=== PATIENT | female | born 1950 | race African-American/Black ===

== ENCOUNTER 2019-12-03 17:29 | Observation (INO) | payer MEDICARE, MEDICAID, SELFPAY ==
[2019-12-03] VITALS (9 sets, daily range): BP systolic 81–121; BP diastolic 52–73; PULSE 64–117; RESP 17–22; TEMP 36.6; O2SAT 96–100; BMI 23.8
--- NOTE | ~2019-12-03 | XR_ITS ---
EXAMINATION: XR chest 2V DATE: 12/03/2019 18:22 INDICATION: Shortness of breath TECHNIQUE: PA and lateral views of the chest are obtained. COMPARISON: None available FINDINGS: There are minimal airspace opacities of the right lower lobe. There is no pleural effusion or pneumothorax. The heart size is normal. Calcified mediastinal lymph nodes are consistent with old granulomatous disease. There is mild thoracic spondylosis. IMPRESSION: 1. Minimal airspace opacity of the right lower lobe, consistent with atelectasis versus pneumonia. Reviewed, dictated and finalized at location A. IMPRESSION: 1. Minimal airspace opacity of the right lower lobe, consistent with atelectasi s versus pneumonia.
--- NOTE | 2019-12-03 17:46 | ECG_ITS ---
Measurements Intervals [place] Rate: 68 P: 49 SC: 143 QRS: 24 QRSD: 90 T: 55 QT: 408 QTc: 436 Interpretive Statements SINUS RHYTHM BORDERLINE ST-T WAVE ABNORMALITY- INF/HIGH LAT LEADS BASELINE ARTIFACT- I, II, III, AVR, AVL BORDERLINE ECG Electronically Signed On 12-03-2019 20:47:04 CDT by Adam Herbert D.O.
--- NOTE | 2019-12-03 19:11 | ED.SOB ---
HPI - SOB/Dyspnea General Chief Complaint: Shortness of Breath/Dyspnea Stated Complaint: difficulty breathing, llq abd pain Time Seen by Provider: 12/03/19 18:59 Source: RN notes reviewed History of Present Illness HPI Narrative: Patient presents emergency department from home for shortness of breath. Patient states symptoms began yesterday. States is been associated with a cough this been nonproductive. Patient states she has been using her inhaler at home with no relief. She denies any fevers or chills abdominal pain nausea vomiting or any other symptoms. Is noted some mild tightness across her chest anteriorly worse with coughing Related Data Allergies Allergy/AdvReac Type Severity Reaction Status Date / Time No Known Allergies Allergy Verified 03/05/19 18:29 Review of Systems Review of Systems: Narrative: Gen.: Denies fevers or chills ENT: Denies congestion Respiratory: See HPI CV: Reports chest pain GI: Denies abdominal pain nausea, emesis or diarrhea Musculoskeletal: Denies back pain or muscle pain Neuro: Denies numbness, tingling, weakness or focal weakness Skin: Denies rash Except as documented, all other systems reviewed and negative [facility] Past Medical History Medical History Alcoholic Diabetes mellitus with neuropathy Stroke Social History Social History Years smoked: 50 Smoking status: Light tobacco smoker Tobacco type: cigarettes Second hand tobacco smoke exposure: No Alcohol intake: former Substance use: current Substance use type: crack/cocaine Last use: 1 week ago Gender identity (if verbalized by the patient): Female Spiritual care concerns: No Agree to blood products: Yes Exam Narrative: Exam Narrative: APPEARANCE: No acute distress, nontoxic, resting in bed EYES: EOMI HEENT: Normocephalic, atraumatic, OMM RESPIRATORY: No respiratory distress coarse breath sounds bilateral lung bases no wheezing CARDIOVASCULAR: Regular rate and rhythm without murmurs rubs or gallops. ABDOMINAL: Soft, nontender, nondistended, no rebound or guarding MUSCULOSKELETAl: Moves all extremities. No clubbing, cyanosis or edema. NEURO: Awake and alert. Following commands, speech normal, no focal deficits SKIN:: Warm, dry. No rashes lesions or abrasions PSYCHIATRIC: Normal affect/mood, Course Course Emergency Course: Discussed with HAL Mahmood for open presentation work-up he agrees with admission at this time Discussed with patient and family results of workup and diagnosis. Discussed need for admission. Patient and family understand and agree to current treatment plan Vital Signs Vital signs: Vital Signs Temperature 98 F 12/03/19 18:35 Pulse Rate 70 12/03/19 18:35 Respiratory Rate 18 12/03/19 18:35 Blood Pressure 81/56 L 12/03/19 18:35 Pulse Oximetry 100 12/03/19 18:35 Temperature 98 F 12/03/19 18:35 Pulse Rate 65 12/03/19 20:54 Respiratory Rate 20 12/03/19 20:54 Blood Pressure 121/73 12/03/19 20:33 Pulse Oximetry 96 12/03/19 20:47 MDM - SOB/Dyspnea Lab Data Result diagrams: 12/03/19 19:16 12/03/19 19:16 Labs: Lab Results 12/03/19 12/03/19 12/03/19 Range/Units 19:16 19:16 19:36 WBC 5.5 (4.5-10.0) K/mm3 RBC 3.97 L (4.2-5.4) M/mm3 Hgb 11.5 L (12.0-15.0) g/dL Hct 36.2 L (37.0-47.0) % MCV 91.2 (80-100) fl MCH 29.0 (26-34) pg MCHC 31.8 L (32-36) g/dl RDW 14.4 (11.5-14.5) % Plt Count 248 (150-375) k/mm3 MPV 11.0 H (7.4-10.4) fl Immature Gran % (Auto) 0.4 (0-0.5) % Neut % (Auto) 45.6 (45.5-73.1) % Lymph % (Auto) 42.8 (18.3-44.2) % [place] % (Auto) 9.7 H (2.6-8.5) % Eos % (Auto) 1.1 (0-4.4) % Baso % (Auto) 0.4 (0.2-1.2) % Lymph # (Auto) 2.35 (0.9-3.2) K/mm3 [place] # (Auto) 0.5 (0.1-0.6) K/mm3 Eos # (Auto) 0.1 (0-0.
[2019-12-03 19:23] LABS: Basophils Percent Auto 0.4 % (0.2-1.2); Eosinophils Absolute Auto 0.1 K/mm3 (0-0.3); Eosinophils Percent Auto 1.1 % (0-4.4); Hematocrit 36.2 % (37.0-47.0); Hemoglobin 11.5 g/dL (12.0-15.0); Immature Granulocyte Absolute 0.02 K/mm3 (0.00-0.031); Immature Granulocyte Percent A 0.4 % (0-0.5); Lymphocytes Absolute Auto 2.35 K/mm3 (0.9-3.2); Lymphocytes Percent Auto 42.8 % (18.3-44.2); Mean Corpuscular HGB Conc 31.8 g/dl (32-36); Mean Corpuscular Volume 91.2 fl (80-100); Monocytes Absolute Auto 0.5 K/mm3 (0.1-0.6); Monocytes Percent Auto 9.7 % (2.6-8.5); Neutrophils Absolute Auto 2.5 K/mm3 (1.3-6.7); Neutrophils Percent Auto 45.6 % (45.5-73.1); Platelet Count Result 248 k/mm3 (150-375); Red Blood Count 3.97 M/mm3 (4.2-5.4); Red Cell Distribution Width 14.4 % (11.5-14.5); White Blood Count 5.5 K/mm3 (4.5-10.0)
[2019-12-03 19:41] LABS: Anion Gap 8 mmol/L (8-16); Blood Urea Nitrogen 25 mg/dL (7-17); Calcium 9.1 mg/dL (8.4-10.2); Carbon Dioxide 29 mmol/L (22-30); Chloride 101 mmol/L (98-107); Estimated CRCL calculation 37 ml/min; Estimated Glomerular Filt Rate 50; Glucose 66 mg/dL (65-105); Potassium 4.4 mmol/L (3.4-5.0); Sodium 138 mmol/L (137-145)
[2019-12-03] MEDS: LACTATED RINGERS 1,000 ML 999 ML IV CONT (19:46)
[2019-12-03 20:04] LABS: Lactic Acid Reflex 1.6 mmol/L (0.7-2.1)
[2019-12-03] MEDS: ALBUTEROL SULFATE NEB 2.5 MG/0.5 ML INH 5 MG INHALATION (20:50)
[2019-12-03] MEDS: IPRATROPIUM BR 0.02% INH SOLN 0.5 MG/2.5 ML VIAL INHALATION (20:51)
--- NOTE | 2019-12-03 21:52 | ADMGEN ---
This patient, Mariely Meza, was admitted to Medical Room 345-01. Patient/family oriented to hospital policies and general routines including ID bracelet, bed and alarms, visiting hours, pain management, procedures, bathroom and other care routines, personal items, smoking policy, room service/diet, and visiting hours. Valuables list has been completed. Information on how to activate the Rapid Response Team has been discussed. Patient/Family are encouraged to report perceived risks to care and to ask questions if they do not understand what they are told or what they should do.
[2019-12-03 21:59] LABS: Glucose Point of Care 71 (65-105)
[2019-12-03] MEDS: SODIUM CHLORIDE 0.9% IV 1,000 ML 125 ML IV CONT (22:18)
[2019-12-04] VITALS (13 sets, daily range): BP systolic 88–122; BP diastolic 51–63; PULSE 60–82; RESP 16–18; TEMP 36.6–36.8; O2SAT 97–100
[2019-12-04] MEDS: IPRATROPIUM BR 0.02% INH SOLN 0.5 MG/2.5 ML VIAL INHALATION ×3 (01:45→21:37)
[2019-12-04] MEDS: ALBUTEROL SULFATE NEB 2.5 MG/0.5 ML INH 5 MG INHALATION ×3 (01:45→21:35)
[2019-12-04 05:51] LABS: Add Urine Microscopic? NO; Appearance Urine Clear (Clear); Bilirubin Urine Negative (Negative); Blood Urine Negative (Negative); Color Urine Colorless (Yellow); Glucose Urine UA Negative (Negative); Ketones Urine Negative (Negative); Leukocyte Esterase Ur Negative LEU/UL (Negative); Nitrate Urine Negative (Negative); Protein Urine Negative (Negative); Specific Grav Ur 1.009 (1.001-1.035); Urobilinogen Urine Negative mg/dL (<2.0)
[2019-12-04 06:14] LABS: Basophils Percent Auto 0.4 % (0.2-1.2); Eosinophils Percent Auto 0.8 % (0-4.4); Hematocrit 34.7 % (37.0-47.0); Hemoglobin 10.9 g/dL (12.0-15.0); Immature Granulocyte Absolute 0.01 K/mm3 (0.00-0.031); Immature Granulocyte Percent A 0.2 % (0-0.5); Lymphocytes Absolute Auto 2.42 K/mm3 (0.9-3.2); Lymphocytes Percent Auto 48.3 % (18.3-44.2); Mean Corpuscular HGB Conc 31.4 g/dl (32-36); Mean Corpuscular Hemoglobin 28.8 pg (26-34); Mean Corpuscular Volume 91.8 fl (80-100); Mean Platelet Volume 10.6 fl (7.4-10.4); Monocytes Absolute Auto 0.4 K/mm3 (0.1-0.6); Monocytes Percent Auto 8.8 % (2.6-8.5); Neutrophils Absolute Auto 2.1 K/mm3 (1.3-6.7); Neutrophils Percent Auto 41.5 % (45.5-73.1); Platelet Count Result 199 k/mm3 (150-375); Red Blood Count 3.78 M/mm3 (4.2-5.4); Red Cell Distribution Width 13.9 % (11.5-14.5)
[2019-12-04 06:33] LABS: Anion Gap 9 mmol/L (8-16); Blood Urea Nitrogen 19 mg/dL (7-17); Calcium 8.6 mg/dL (8.4-10.2); Carbon Dioxide 26 mmol/L (22-30); Chloride 104 mmol/L (98-107); Estimated CRCL calculation 43 ml/min; Estimated Glomerular Filt Rate 60; Glucose 71 mg/dL (65-105); Potassium 4.1 mmol/L (3.4-5.0); Sodium 139 mmol/L (137-145)
[2019-12-04 07:08] LABS: Acanthocytes 1+ (NORMAL); Platelet Estimate Adequate (Adequate)
[2019-12-04 07:09] LABS: Ovalocytes 1+ (NORMAL)
[2019-12-04] MEDS: SODIUM CHLORIDE 0.9% IV 1,000 ML 125 ML IV CONT ×2 (07:45→15:37)
[2019-12-04 07:47] LABS: Glucose Point of Care 79 (65-105)
[2019-12-04] MEDS: ASPIRIN 325 MG TABLET PO (09:21)
[2019-12-04] MEDS: carvediloL 25 MG TABLET PO ×2 (09:21→20:48)
[2019-12-04] MEDS: hydroCHLOROthiazide 12.5 MG CAPSULE PO (09:21)
[2019-12-04] MEDS: LOSARTAN POTASSIUM 50 MG TABLET PO (09:21)
[2019-12-04 11:17] LABS: Glucose Point of Care 121 (65-105)
[2019-12-04 11:32] LABS: Glucose Point of Care 124 (65-105)
--- NOTE | 2019-12-04 12:36 | PM.IMHP ---
H&P: HPI History of Present Illness Date/Time: 12/04/19 12:36 Chief complaint: community acquired pneumonia/renal insufficiency Narrative: Mariely Meza is a 69 year old female with PMH significant for CVA hypertension, hyperlipidemia, type 2 diabetes mellitus with peripheral neuropathy, and asthma who presented to the emergency department for the evaluation of dyspnea and cough. Dyspnea is worse with exertion. Symptoms started on Sunday. Her cough is non-productive. She denies wheezing and chest tightness. She used her albuterol inhaler without relief. She denies subjective fever and chills. She denies chest pain, palpitations, and pleuritic pain. She denies known sick contacts including no known contact with anyone infected with COVID-19. She denies sore throat, loss of taste, and loss of smell. She is a current smoker and reports that she has not smoked for 1 week but generally smokes 1 cigarette per day when she does smoke. She has no other complaints including no nausea, vomiting, abdominal pain, or diarrhea. She reports generalized weakness since her stroke. Initial vitals were temperature 98F, pulse 70, RR 18, BP 81/56, and oxygen saturation 100. Initial workup in the emergency department included CXR which demonstrated minimal airspace opacity of the right lower lobe. Urinalysis was negative. WBC was 5,500, Hb 11.5, Hct 36.2, BUN 25, and Cr 1.3. She was treated with IV fluids and IV azithromycin and ceftriaxone in the emergency department and admitted for community acquired pneumonia and acute kidney injury. At the time of my evaluation, she is feeling much better. Review of Systems Review of Systems: Narrative: Constitutional: Denies fever, chills, fatigue, and appetite change. Denies recent sick contacts. Denies significant weight change. Eyes: Denies vision change. No additional eye complaints. ENT: Denies change in hearing, nasal congestion, dysphagia, odynophagia, and sore throat. Denies prior hx of aspiration and no concern for recent aspiration. Cardiovascular: Denies palpitations and chest pain. Denies PND and orthopnea. Denies lower extremity edema. Respiratory: As above. Gastrointestinal: Denies abdominal pain, nausea, and vomiting. Denies melena and hematochezia. Denies constipation and diarrhea. Genitourinary: Denies dysuria, frequency, urgency, and hesitancy. Denies hematuria. Musculoskeletal: Denies joint pain and swelling. Reports generalized lower extremity weakness following stroke. Skin: Denies lesions and wounds. Neurologic: +Hx of CVA. She reports chronic right sided weakness and chronic dysphasia due to prior stroke. She denies headaches, acute lateralizing weakness, speech change, and vision change. Psychiatric: Denies mood change. Hematologic: Denies easy bruising and bleeding. All systems reviewed & are unremarkable except as noted in HPI and below PMFSH Past Medical History Medical History (Updated 12/04/19 @ 16:40 by Abril Polanco PA-C) 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 Asthma Diabetes mellitus with neuropathy Hyperlipidemia Hypertension Stroke She had a CVA in February 2019 with residual right sided weakness and dysarthric speech Surgical History Surgical History (Updated 12/04/19 @ 15:59 by Abril Polanco PA-C) History of mastectomy Left mastectomy Family History Family History Mother Breast cancer Diabetes mellitus Sibling Diabetes mellitus Hypertension Father Prostate carcinoma Social History Social History (Updated 12/04/19 @ 16:03 by Abril Polanco PA-C) Social History: Mrs. Meza lives at home with her boyfriend. 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 She reports a hx of crack cocaine use prior to her stroke but denies current drug and alcohol use. She endorses smoking 1 cigarette per day but states she has not smoked in 1 week. She wishes to be a f
--- NOTE | 2019-12-04 15:23 | PCSTNOTE ---
Please refer to the Bedside Swallow Evaluation in the EMR. Please note, silent aspiration cannot be ruled out at bedside.
[2019-12-04 16:20] LABS: Glucose Point of Care 103 (65-105)
--- NOTE | 2019-12-04 18:18 | PC.NURSE ---
No need to isolate at this time per Dr Zuluaga.
[2019-12-04] MEDS: ENOXAPARIN 40 MG/0.4 ML SYRINGE SUB-Q (20:47)
[2019-12-04] MEDS: ATORVASTATIN 40 MG TABLET PO (20:47)
[2019-12-04 21:11] LABS: Glucose Point of Care 94 (65-105)
[2019-12-05] MEDS: SODIUM CHLORIDE 0.9% IV 1,000 ML 125 ML IV CONT (01:13)
[2019-12-05] MEDS: IPRATROPIUM BR 0.02% INH SOLN 0.5 MG/2.5 ML VIAL INHALATION ×2 (02:21→08:50)
[2019-12-05] MEDS: ALBUTEROL SULFATE NEB 2.5 MG/0.5 ML INH 5 MG INHALATION ×2 (02:21→08:50)
[2019-12-05 02:23] VITALS: PULSE 74; RESP 16
[2019-12-05 05:07] VITALS: BP 108/68; PULSE 82; RESP 20; TEMP 36.7; O2SAT 100
[2019-12-05 06:29] LABS: Basophils Percent Auto 0.2 % (0.2-1.2); Eosinophils Absolute Auto 0.1 K/mm3 (0-0.3); Eosinophils Percent Auto 1.4 % (0-4.4); Hematocrit 30.6 % (37.0-47.0); Hemoglobin 9.8 g/dL (12.0-15.0); Immature Granulocyte Absolute 0.01 K/mm3 (0.00-0.031); Immature Granulocyte Percent A 0.2 % (0-0.5); Lymphocytes Absolute Auto 2.47 K/mm3 (0.9-3.2); Mean Corpuscular Hemoglobin 28.9 pg (26-34); Mean Corpuscular Volume 90.3 fl (80-100); Mean Platelet Volume 10.7 fl (7.4-10.4); Monocytes Absolute Auto 0.3 K/mm3 (0.1-0.6); Monocytes Percent Auto 6.8 % (2.6-8.5); Neutrophils Absolute Auto 1.6 K/mm3 (1.3-6.7); Neutrophils Percent Auto 35.4 % (45.5-73.1); Platelet Count Result 213 k/mm3 (150-375); Red Blood Count 3.39 M/mm3 (4.2-5.4); White Blood Count 4.4 K/mm3 (4.5-10.0)
[2019-12-05 06:55] LABS: Alanine Aminotransferase 20 U/L (4-35); Albumin Level 3.2 g/dL (3.5-5.1); Alkaline Phosphatase 73 U/L (38-126); Anion Gap 7 mmol/L (8-16); Aspartate Amino Transferase 32 U/L (14-36); Bilirubin,Total 0.3 mg/dL (0.2-1.3); Blood Urea Nitrogen 14 mg/dL (7-17); CRP 1.9 mg/dL (<1.0); Carbon Dioxide 25 mmol/L (22-30); Chloride 107 mmol/L (98-107); Creatine Kinase 611 U/L (30-135); Estimated CRCL calculation 43 ml/min; Estimated Glomerular Filt Rate 60; Glucose 100 mg/dL (65-105); Lactate Dehydrogenase 414 U/L (313-618); Magnesium 1.3 mg/dL (1.6-2.3); Potassium 4.1 mmol/L (3.4-5.0); Sodium 139 mmol/L (137-145)
[2019-12-05 08:24] VITALS: PULSE 72
[2019-12-05] MEDS: carvediloL 25 MG TABLET PO (08:24)
[2019-12-05] MEDS: ASPIRIN 325 MG TABLET PO (08:24)
[2019-12-05] MEDS: MAGNESIUM SULF 2 GM/WATER 50ML 2 GM/50 ML BAG IVPB (08:24)
[2019-12-05 08:50] VITALS: PULSE 65; RESP 16
[2019-12-05 08:55] VITALS: PULSE 65; RESP 16
[2019-12-05 10:11] LABS: Glucose Point of Care 101 (65-105)
--- NOTE | 2019-12-05 10:18 | PM.DS ---
DS: Admitting Diagnosis Admitting Diagnosis Admitting Diagnosis: community acquired pneumonia/renal insufficiency DS: Discharge Diagnosis Discharge Diagnosis (1) COVID-19: Code(s): U07.1 - COVID-19 Status: Acute Assessment and Plan: Mariely Meza is a 69 year old female with PMH significant for CVA hypertension, hyperlipidemia, type 2 diabetes mellitus with peripheral neuropathy, and asthma who presented to the emergency department for the evaluation of dyspnea and cough. Symptoms started on 12/02. Initial vitals were temperature 98F, pulse 70, RR 18, BP 81/56, and oxygen saturation 100. Initial workup in the emergency department included CXR which demonstrated minimal airspace opacity of the right lower lobe. Urinalysis was negative. WBC was 5,500, Hb 11.5, Hct 36.2, BUN 25, and Cr 1.3. Blood cultures were obtained. She was treated with IV fluids and IV azithromycin and ceftriaxone in the emergency department and admitted for community acquired pneumonia and acute kidney injury. She was tested for COVID-19 which was positive. Antibiotics were discontinued. She did not become hypoxic and felt much better. She was not treated with IV dexamethasone or remdesivir as it was not indicated due to absence of hypoxia/severe disease. Oxygen saturations were 96-100%. She was advised to quarantine at home, monitor pulse oxygenation, and symptoms closely. She was advised to return to the emergency department immediately should her condition worsen. She was discharged home in hemodynamically stable condition on the afternoon of 12/05/19. (2) Acute renal insufficiency: Code(s): N28.9 - Disorder of kidney and ureter, unspecified Status: Acute Assessment and Plan: Cr 1.3 and BUN 25 at admission. Suspect pre-renal as she does appear dehydrated. Cr improved with IV hydration. (3) Hypertension: Code(s): I10 - Essential (primary) hypertension Status: Chronic Assessment and Plan: Blood pressures were reviewed and are soft. She had a reading of 88/57 with the automatic cuff which was repeated with the manual cuff and 106/62/ She did appear dehydrated and is received gentle IV fluid hydration. Orthostatic BP was checked and she was not orthostatic per the RN. Lactic acid was normal and she did not have any evidence of shock. I discussed that she may need to reduce/hold some of her antihypertensives. Her lifestyle has changed some as she is no longer smoking, drinking, or using drugs. Losartan and hydrochlorothiazide were temporarily held and carvedilol was continued. She was advised to keep a blood pressure log and follow-up with her primary care doctor to review her blood pressures. I discussed goal blood pressures and she and her daughter verbalized understanding. (4) Diabetes mellitus with neuropathy: Code(s): E11.40 - Type 2 diabetes mellitus with diabetic neuropathy, unspecified Status: Chronic Assessment and Plan: Blood sugars were reviewed and are reasonably controlled. Glimepiride and metformin were held while inpatient and resumed at discharge. [facility] glucose monitoring, hypoglycemia protocol, and sliding scale insulin were used while inpatient. (5) Hyperlipidemia: Code(s): E78.5 - Hyperlipidemia, unspecified Status: Chronic Assessment and Plan: LFTs were normal. Atorvastatin was continued. (6) History of stroke: Code(s): Z86.73 - Personal history of transient ischemic attack (TIA), and cerebral infarction without residual deficits Status: Chronic Assessment and Plan: She has a hx of an ischemic stroke of the left thalamus involving the leroy radiata and lentiform nuclei Feb 2019 with residual dysphasia and right sided weakness. ASA and atorvastatin were continued. (7) Asthma: Code(s): J45.909 - Unspecified asthma, uncomplicated Status: Chronic Assessment and Plan: She has no evidence of acute broncho
[2019-12-05 12:17] LABS: Glucose Point of Care 147 (65-105)
[2019-12-05 13:59] LABS: SARS-CoV-2 RNA PCR Positive
[2019-12-07 23:33] LABS: Pneumococcal Antigen Urine Not Detected (Not Detected)
[2019-12-08 18:01] LABS: Legionella pneumophila Ag Ur Not Detected (Not Detected)
== END 2019-12-05 14:50 | disposition home or self-care (01) | DRG 177 ==
LOC: ANHED 20:56 → ANH3MED 22:05
PROVIDERS: Emergency Medicine; Physician Assistant; Admitting Provider Internal Medicine; Emergency Provider Emergency Medicine; Visit Provider Internal Medicine
DX: U07.1 COVID-19 (principal); J12.89 Other viral pneumonia; I69.351 Hemiplegia and hemiparesis following cerebral infarction affecting right dominant side; N17.9 Acute kidney failure, unspecified; E11.42 Type 2 diabetes mellitus with diabetic polyneuropathy; I69.322 Dysarthria following cerebral infarction; F17.210 Nicotine dependence, cigarettes, uncomplicated; J45.909 Unspecified asthma, uncomplicated; I10 Essential (primary) hypertension; E86.0 Dehydration; R53.1 Weakness; E78.5 Hyperlipidemia, unspecified; Z79.82 Long term (current) use of aspirin; Z79.84 Long term (current) use of oral hypoglycemic drugs; Z79.899 Other long term (current) drug therapy; F10.21 Alcohol dependence, in remission
CPT/HCPCS: 36415; 71046; 80048; 80053; 81003; 82550; 82728; 83605; 83615; 83735; 85025; 86140; 87040; 87449; 87635; 87899; 92610; 93005; 94640; 96361; 96365; 96367; 96372; 96375; 97161; 97165; 99285; A9270; C9803; G0378; J0456; J0696; J1650; J3475; J7030; J7120; U0003

== ENCOUNTER 2020-06-07 17:32 | Emergency (ER) | payer MEDICARE, MEDICAID, SELFPAY ==
[2020-06-07] VITALS (17 sets, daily range): BP systolic 94–103; BP diastolic 55–73; PULSE 69–85; RESP 13–22; TEMP 36.3–37.1; O2SAT 80–100
--- NOTE | ~2020-06-07 | CT_ITS ---
EXAMINATION: CT brain wo con DATE: 06/07/2020 22:17 INDICATION: Increased confusion. Leg weakness. TECHNIQUE: Computed tomography (CT) of the head was performed without intravenous contrast. The mA wa s adjusted according to patient size. Iterative reconstruction technique was employed. Exam dose: 52 9.67 mGy-cm total exam DLP. COMPARISON: None FINDINGS: There is central and cortical cerebral and cerebellar atrophy. There is prominent patchy diminished attenuation of the subcortical and periventricular cerebral whit e matter, likely due to chronic small vessel ischemic changes. Bilateral carotid siphon internal diaz tid artery calcifications are noted. There are bilateral chronic basal ganglia lacunar infarcts, left greater than right. There is chronic infarct along the anterior limb of the left internal capsule, left lentiform nucleus, head and body of the left caudate nucleus and left leroy radiata. No intracranial mass lesion or hemorrhage. No definite recent cerebrovascular accident is noted, but CT is not sensitive for hyperacute ischemia ischemic infarct. No midline shift or mass effect effect. No subdural or epidural hematoma is detected. No fracture or bone destruction of the cranial vault. Included paranasal sinuses and mastoid air cells are unremarkable. IMPRESSION: Cerebral atherosclerosis and chronic small vessel ischemic changes of cerebral white mat ter Chronic lacunar infarcts primarily involving the left internal capsule, lentiform nucleus and anterio r limb and body of the left caudate nucleus and left leroy radiata No acute intracranial finding Reviewed, dictated and finalized at [facility]. Reviewed, dictated and finalized at location A. IMPRESSION: Cerebral atherosclerosis and chronic small vessel ischemic changes of cerebral white matter Chronic lacunar infarcts primarily involving the left internal capsule, lentifo rm nucleus and anterior limb and body of the left caudate nucleus and left bay na radiata No acute intracranial finding
--- NOTE | ~2020-06-07 | XR_ITS ---
XR chest 2V DATE: 06/07/2020 18:32 INDICATION: Confusion for one week. Weakness. History of asthma, hypertension, cerebrovascular accide nt. TECHNIQUE: AP and lateral views COMPARISON: 12/03/2019 PA and lateral chest FINDINGS: Mild cardiomegaly. There is aortic unfolding. There is old pulmonary granulomatous disease. No pulmonary infiltrate or consolidation, pleural effusion or pulmonary vascular congestion or pneumo thorax. IMPRESSION: Mild cardiomegaly; no active pulmonary disease Reviewed, dictated and finalized at location A.
--- NOTE | 2020-06-07 18:13 | ECG_ITS ---
Measurements Intervals [place] Rate: 69 P: 52 WI: 137 QRS: -1 QRSD: 92 T: 3 QT: 399 QTc: 428 Interpretive Statements SINUS RHYTHM BASELINE ARTIFACT- I, III, AVR, AVL, AVF, V1-V4 BORDERLINE ECG Electronically Signed On 06-08-2020 8:02:02 CDT by Adam Herbert D.O.
[2020-06-07 18:27] LABS: Basophils Absolute Auto 0.1 K/mm3 (0.0-0.1); Eosinophils Absolute Auto 0.3 K/mm3 (0-0.3); Hematocrit 30.6 % (37.0-47.0); Hemoglobin 9.2 g/dL (12.0-15.0); Immature Granulocyte Absolute 0.03 K/mm3 (0.00-0.031); Immature Granulocyte Percent A 0.4 % (0-0.5); Lymphocytes Absolute Auto 2.19 K/mm3 (0.9-3.2); Lymphocytes Percent Auto 32.2 % (18.3-44.2); Mean Corpuscular HGB Conc 30.1 g/dl (32-36); Mean Corpuscular Hemoglobin 26.9 pg (26-34); Mean Corpuscular Volume 89.5 fl (80-100); Monocytes Absolute Auto 0.6 K/mm3 (0.1-0.6); Monocytes Percent Auto 8.5 % (2.6-8.5); Neutrophils Absolute Auto 3.6 K/mm3 (1.3-6.7); Neutrophils Percent Auto 52.9 % (45.5-73.1); Platelet Count Result 447 k/mm3 (150-375); Red Blood Count 3.42 M/mm3 (4.2-5.4); Red Cell Distribution Width 17.1 % (11.5-14.5); White Blood Count 6.8 K/mm3 (4.5-10.0)
[2020-06-07 18:38] LABS: Alanine Aminotransferase 351 U/L (4-35); Albumin Level 4.1 g/dL (3.5-5.1); Alkaline Phosphatase 72 U/L (38-126); Anion Gap 8 mmol/L (8-16); Aspartate Amino Transferase 396 U/L (14-36); Bilirubin,Total 0.2 mg/dL (0.2-1.3); Blood Urea Nitrogen 31 mg/dL (7-17); Calcium 9.7 mg/dL (8.4-10.2); Carbon Dioxide 29 mmol/L (22-30); Chloride 106 mmol/L (98-107); Estimated CRCL calculation 31 ml/min; Estimated Glomerular Filt Rate 42; Glucose 91 mg/dL (65-105); Potassium 4.6 mmol/L (3.4-5.0); Sodium 143 mmol/L (137-145)
[2020-06-07 20:57] LABS: Add Urine Microscopic? YES; Appearance Urine Cloudy (Clear); Bilirubin Urine Negative (Negative); Blood Urine 3+ (Negative); Color Urine Amber (Yellow); Glucose Urine UA Negative (Negative); Ketones Urine Negative (Negative); Leukocyte Esterase Ur 2+ LEU/UL (Negative); Nitrate Urine Negative (Negative); Protein Urine 1+ mg/dL (Negative); Specific Grav Ur 1.025 (1.001-1.035)
[2020-06-07 21:06] LABS: Bacteria Urine 4+ /hpf; Squamous Epithelial Cell Urine Moderate /hpf (Few); WBC Urine 21-30 /hpf (0-3)
--- NOTE | 2020-06-07 21:33 | ED.WEAKNESS ---
HPI - Weakness General Chief complaint: Weakness Stated complaint: confusion/weakness Time Seen by Provider: 06/07/20 21:01 History of Present Illness HPI Narrative: 69 yo female w/ h/o CVA, HTN, DM presents to the ED for generalized weakness. She has been feeling weaker for the past several weeks. She has no focal weakness. She requires assitance with walking. She also has intermittent worsening of her dysarthria, which was present after old stroke. Symptoms wax and wane. No fever, chills, nausea, vomiting. He daughter states that she was recently treated for a UTi, but cannot give further details. Related Data Home Medications Medication Instructions Recorded Confirmed carvedilol [Coreg] 25 mg PO BID 12/03/19 12/03/19 hydrochlorothiazide 12.5 mg PO DAILY 12/03/19 12/03/19 losartan 50 mg PO DAILY 12/03/19 12/03/19 sennosides-docusate sodium 1 tab PO HS PRN 12/03/19 12/03/19 [Senokot-S] Allergies Allergy/AdvReac Type Severity Reaction Status Date / Time No Known Allergies Allergy Verified 06/07/20 21:02 Review of Systems Review of Systems: All systems reviewed & are unremarkable except as noted in HPI and below Constitutional: Constitutional: Denies chills, Denies fever(s) and Reports weakness Eyes: Eyes: Reports no additional eye complaints ENT: Reports dizziness Cardiovascular: Cardiovascular: Denies chest pain Respiratory: Respiratory: Denies dyspnea Gastrointestinal: Gastrointestinal: Denies abdominal pain Genitourinary: Genitourinary: Denies dysuria Musculoskeletal: Musculoskeletal: Denies back pain Neurologic: Reports weakness PMFSH Past Medical History Medical History 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 Asthma Diabetes mellitus with neuropathy Hyperlipidemia Hypertension Stroke She had a CVA in February 2019 with residual right sided weakness and dysarthric speech Surgical History Surgical History History of mastectomy Left mastectomy Family History Family History Mother Breast cancer Diabetes mellitus Sibling Diabetes mellitus Hypertension Father Prostate carcinoma Social History Social History Social History: Mrs. Meza lives at home with her boyfriend. 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 She reports a hx of crack cocaine use prior to her stroke but denies current drug and alcohol use. She endorses smoking 1 cigarette per day but states she has not smoked in 1 week. She wishes to be a full code and has designated her daughter, Shanel Jacobs, as her surrogate decision maker. Years smoked: 50 Smoking status: Current every day smoker Tobacco type: cigarettes Second hand tobacco smoke exposure: Yes Additional smoking assessment comments: She reports she has not smoked in 1 week but does smoke 1 cigarette/day. Alcohol intake: former Substance use: former Substance use type: crack/cocaine Gender identity (if verbalized by the patient): Female Spiritual care concerns: No Agree to blood products: Yes Exam Const: General: no acute distress and alert Orientation/consciousness: patient oriented x3 HENMT: Other: left facial weakness Eyes: Conjunctivae: conjunctivae normal Pupils: Equal, round and reactive pupils present EOM: EOMs intact bilaterally Neck: Neck: normal visual inspection Resp: Effort & Inspection: normal respiratory effort Auscultation: clear to auscultation bilaterally Cardio: Rate: regular rate Rhythm: regular rhythm GI: GI Palp: Yes Soft to palpation and No Tenderness to palpation present (GI) Skin: General skin exam: normal color Rashes: no rashes Neuro: General: patient oriented x3 Speech: Abnormal speech present slurred
[2020-06-07] MEDS: SODIUM CHLORIDE 0.9% IV 1,000 ML 999 ML IV CONT (21:45)
== END 2020-06-07 23:24 | disposition home or self-care (01) ==
PROVIDERS: Emergency Medicine; Emergency Provider Emergency Medicine
DX: N39.0 Urinary tract infection, site not specified (principal); E86.0 Dehydration; I10 Essential (primary) hypertension; E11.40 Type 2 diabetes mellitus with diabetic neuropathy, unspecified; I69.951 Hemiplegia and hemiparesis following unspecified cerebrovascular disease affecting right dominant side; I69.922 Dysarthria following unspecified cerebrovascular disease; J45.909 Unspecified asthma, uncomplicated; Z90.12 Acquired absence of left breast and nipple; F10.21 Alcohol dependence, in remission; F17.210 Nicotine dependence, cigarettes, uncomplicated; I51.7 Cardiomegaly; R94.31 Abnormal electrocardiogram [ECG] [EKG]; I67.2 Cerebral atherosclerosis; Z79.84 Long term (current) use of oral hypoglycemic drugs; Z79.82 Long term (current) use of aspirin
CPT/HCPCS: 36415; 70450; 71046; 80053; 81001; 85025; 87086; 93005; 96361; 96365; 99284; J0696; J7030

== ENCOUNTER 2020-09-08 20:24 | Observation (INO) | payer MEDICARE, MEDICAID, SELFPAY ==
--- NOTE | ~2020-09-08 | CT_ITS ---
EXAMINATION: CT abdomen pelvis w con DATE: 09/09/2020 01:35 INDICATION: Transaminitis. History of breast cancer. Weakness. TECHNIQUE: Computed tomography (CT) of the abdomen and pelvis was performed with 100 cc Omnipaque 350 intravenous contrast. Automated exposure control and iterative reconstruction technique were employe d. Exam dose: 389.65 mGy-cm total exam DLP. COMPARISON: None. FINDINGS: Status post left mastectomy. The lung bases are clear of infiltrate or consolidation. Normal heart size. No pericardial or pleural effusion. The liver, gallbladder, bile ducts, spleen, pancreas and pancreatic duct appear within normal limits. Normal morphology of the adrenal glands. Bilateral renal scarring consistent with chronic pyelonephritis. 6 mm left renal hypoattenuating lesi on, too small to definitively characterize but possibly a cyst. No urinary tract calculus or hydroure teronephrosis is evident. Moderate thickening of the urinary bladder wall, possibly due to relative evacuation versus cystitis. Clinical correlation is advised. Diverticulosis of left and right colon; no CT evidence of diverticulitis. No bowel obstruction or int raperitoneal free air is detected. Normal caliber of the abdominal aorta. No intraperitoneal or retroperitoneal or pelvic mass lesion or adenopathy or ascites. No suspicious osteolytic or osteoblastic lesions. IMPRESSION: Bilateral chronic pyelonephritis Nonspecific 6 mm hypoattenuating lesion of the left kidney, possibly a cyst Diverticulosis of left and right colon; no CT evidence of diverticulitis Reviewed, dictated and finalized at [facility]. Reviewed, dictated and finalized at [facility].
--- NOTE | ~2020-09-08 | CT_ITS ---
EXAMINATION: CT brain wo con DATE: 09/09/2020 01:28 INDICATION: Weakness TECHNIQUE: Computed tomography (CT) of the head was performed without intravenous contrast. The mA wa s adjusted according to patient size. Iterative reconstruction technique was employed. Exam dose: 60 5.33 mGy-cm total exam DLP. COMPARISON: 06/07/2020 CT brain FINDINGS: Again noted are multiple bilateral basal ganglia calcifications, more prominent on the left , chronic infarction along the anterior limb of the left internal capsule, left lentiform nucleus, he ad and body of the left cardiac nucleus and left leroy radiata. Small chronic left occipital paramed isaiah cerebrovascular accident. Small chronic left cerebellar lacunar infarct. There is patchy diminished attenuation of the subcortical and periventricular cerebral white matter, likely due to chronic small vessel ischemic changes. No intracranial mass lesion or hemorrhage or subdural or epidural hematoma. No midline shift or mass effect effect. No fracture or bone destruction of the cranial vault. The mastoid air cells and paranasal sinuses are normally developed and aerated. IMPRESSION: Small chronic lacunar infarct of left cerebral hemisphere, chronic small left occipital paramedian chronic infarct and multiple bilateral cerebral chronic lacunar infarcts, left greater taylor n right; no significant change since 06/07/2020 Reviewed, dictated and finalized at [facility]. Reviewed, dictated and finalized at [facility]. IMPRESSION: Small chronic lacunar infarct of left cerebral hemisphere, chronic small left occipital paramedian chronic infarct and multiple bilateral cerebra l chronic lacunar infarcts, left greater than right; no significant change sin e 06/07/2020
--- NOTE | ~2020-09-08 | XR_ITS ---
EXAMINATION: XR chest 2V DATE: 09/08/2020 21:16 INDICATION: Generalized weakness. Declining health. Asthma and hypertension. TECHNIQUE: frontal and lateral views of the chest were obtained. COMPARISON: Chest radiograph dated 06/07/2020 FINDINGS: Unchanged eventration along the posterior medial left hemidiaphragm. Lungs remain clear with no focal airspace opacities, pulmonary edema, pleural effusion or pneumothorax. The cardiomediastinal silhoue tte is normal. Calcified right paratracheal lymph node consistent with old granulomatous disease. IMPRESSION: 1. No acute cardiopulmonary disease. Reviewed, dictated and finalized at [facility].
--- NOTE | 2020-09-08 20:34 | ECG_ITS ---
Measurements Intervals [place] Rate: 96 P: 44 FL: 143 QRS: 18 QRSD: 88 T: 55 QT: 361 QTc: 456 Interpretive Statements SINUS RHYTHM NONSPECIFIC T-WAVE ABNORMALITY- INF/HIGH LAT LEADS BASELINE WANDER- V4 BORDERLINE ECG Electronically Signed On 09-08-2020 21:16:20 CDT by Adam Herbert D.O.
[2020-09-08 20:36] VITALS: BP 116/74; PULSE 95; RESP 18; TEMP 36.8; O2SAT 100
[2020-09-08 20:54] LABS: Basophils Absolute Auto 0.1 K/mm3 (0.0-0.1); Basophils Percent Auto 0.6 % (0.2-1.2); Eosinophils Absolute Auto 0.3 K/mm3 (0-0.3); Eosinophils Percent Auto 3.7 % (0-4.4); Hematocrit 32.4 % (37.0-47.0); Immature Granulocyte Absolute 0.02 K/mm3 (0.00-0.031); Immature Granulocyte Percent A 0.2 % (0-0.5); Lymphocytes Absolute Auto 2.74 K/mm3 (0.9-3.2); Lymphocytes Percent Auto 34.2 % (18.3-44.2); Mean Corpuscular HGB Conc 30.9 g/dl (32-36); Mean Corpuscular Hemoglobin 27.3 pg (26-34); Mean Corpuscular Volume 88.5 fl (80-100); Mean Platelet Volume 9.8 fl (7.4-10.4); Monocytes Absolute Auto 0.7 K/mm3 (0.1-0.6); Monocytes Percent Auto 8.7 % (2.6-8.5); Neutrophils Absolute Auto 4.2 K/mm3 (1.3-6.7); Neutrophils Percent Auto 52.6 % (45.5-73.1); Platelet Count Result 380 k/mm3 (150-375); Red Blood Count 3.66 M/mm3 (4.2-5.4); Red Cell Distribution Width 16.2 % (11.5-14.5)
[2020-09-08 21:07] LABS: Alanine Aminotransferase 179 U/L (4-35); Albumin Level 3.5 g/dL (3.5-5.1); Alkaline Phosphatase 65 U/L (38-126); Anion Gap 5 mmol/L (8-16); Aspartate Amino Transferase 305 U/L (14-36); Bilirubin,Total 0.2 mg/dL (0.2-1.3); Blood Urea Nitrogen 19 mg/dL (7-17); Calcium 9.2 mg/dL (8.4-10.2); Carbon Dioxide 31 mmol/L (22-30); Chloride 104 mmol/L (98-107); Estimated CRCL calculation 47 ml/min; Estimated Glomerular Filt Rate > 60; Glucose 135 mg/dL (65-105); Potassium 4.1 mmol/L (3.4-5.0); Sodium 140 mmol/L (137-145)
[2020-09-08 23:03] VITALS: BP 115/63; PULSE 95; TEMP 37.2; O2SAT 100
--- NOTE | 2020-09-08 23:47 | ED.WEAKNESS ---
HPI - Weakness General Chief complaint: Weakness Stated complaint: generalized weakness x months Time Seen by Provider: 09/08/20 23:47 Source: patient and family Mode of arrival: wheelchair History of Present Illness HPI Narrative: Patient is a 70-year-old female with a history of hypertension, previous drug use, CVA, breast cancer currently in remission, who presents for evaluation of increasing weakness. Patient's daughter states that over the past 4 to 5 months her mother has had a significant decline. In the past, she has gotten by with home health and physical therapy/Occupational Therapy at home, but patient is no longer able to complete any of her ADLs. She is not able to ambulate. She is almost completely bedbound. She has had falls over the past several weeks, and thus patient stopped walking. Patient denies any new focal weakness or numbness. She denies any current chest pain. She reports intermittently she has some left-sided abdominal pain but denies that currently. She denies fever, chills, nausea or vomiting. No dysuria or hematuria. Patient states that her primary care physician in the [place] wanted her to come to the hospital in order to be admitted for a rehabilitation facility. Patient typically comes to this hospital and her daughter lives in [facility] which is why they presented here tonight. Patient's daughter states she is not safe at home. Patient's daughter states that she currently is supposed to be taking medication for her chemotherapy for maintenance, but she cannot member the name of the medication. She denies history of metastatic disease. Patient denies any current alcohol use. Denies history of transaminitis when questioned. When I asked the daughter if the patient had a history of alcohol abuse she states only occasional use, but per chart review patient does have a history of alcoholism. Related Data Home Medications Medication Instructions Recorded Confirmed carvedilol [Coreg] 25 mg PO BID 12/03/19 12/03/19 hydrochlorothiazide 12.5 mg PO DAILY 12/03/19 12/03/19 losartan 50 mg PO DAILY 12/03/19 12/03/19 sennosides-docusate sodium 1 tab PO HS PRN 12/03/19 12/03/19 [Senokot-S] Allergies Allergy/AdvReac Type Severity Reaction Status Date / Time No Known Allergies Allergy Verified 06/07/20 21:02 Review of Systems Review of Systems: Narrative: CONSTITUTIONAL: Denies fever, chills, or sweats. EYES: Denies visual changes, redness, or discharge. ENT: Denies rhinorrhea, congestion, sore throat, or otalgia. CARDIOVASCULAR: Denies chest pain, palpitations, or edema. RESPIRATORY: Denies cough or dyspnea. GASTROINTESTINAL: Reports mild left-sided abdominal pain without nausea, vomiting, or diarrhea. GENITOURINARY: Denies dysuria or hematuria. SKIN: Denies rash or itching. MUSCULOSKELETAL: Denies back pain, joint pain, or myalgia. NEUROLOGIC: Denies headache, numbness, reports nonfocal weakness PMFSH Past Medical History Medical History 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 Asthma Diabetes mellitus with neuropathy Hyperlipidemia Hypertension Stroke She had a CVA in February 2019 with residual right sided weakness and dysarthric speech Surgical History Surgical History History of mastectomy Left mastectomy Family History Family History Mother Breast cancer Diabetes mellitus Sibling Diabetes mellitus Hypertension Father Prostate carcinoma Social History Social History Social History: Mrs. Meza lives at home with her boyfriend. 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 She reports a hx of crack cocaine use prior to her stroke but denies current drug and alcohol use. She endorses smoking 1 cigarette per
[2020-09-09] VITALS (10 sets, daily range): BP systolic 107–131; BP diastolic 68–80; PULSE 66–90; RESP 14–23; TEMP 36.3–36.8; O2SAT 99–100; BMI 21.7
[2020-09-09 00:42] LABS: Hepatitis B Surface Antigen Negative (Negative)
[2020-09-09 00:48] LABS: HAV RESULT Negative (Negative); Hepatitis B Core IgM Result Negative (Negative)
[2020-09-09 00:59] LABS: Hepatitis C Virus Antibody Negative (Negative)
--- NOTE | 2020-09-09 01:00 | PC.NURSE ---
Pt is a hard stick. This RN attempted IV access x2, unsuccessful. Another RN to attempt.
[2020-09-09] MEDS: SODIUM CHLORIDE 0.9% IV 1,000 ML 999 ML IV CONT (01:42)
[2020-09-09 03:16] LABS: Add Urine Microscopic? YES; Appearance Urine Cloudy (Clear); Bacteria Urine Trace /hpf; Bilirubin Urine Negative (Negative); Color Urine Yellow (Yellow); Glucose Urine UA Negative (Negative); Ketones Urine Negative (Negative); Leukocyte Esterase Ur 2+ LEU/UL (Negative); Mucus Urine Rare /lpf; Nitrate Urine Negative (Negative); Protein Urine 1+ mg/dL (Negative); Squamous Epithelial Cell Urine Many /hpf (Few); WBC Urine 31-50 /hpf
[2020-09-09 03:21] LABS: Blood Urine Negative (Negative); Specific Grav Ur 1.054 (1.001-1.035)
[2020-09-09] MEDS: NITROFURANTOIN MONOHYD MACROCR 100 MG CAP PO ×2 (04:18→11:26)
--- NOTE | 2020-09-09 08:01 | PM.IMHP ---
H&P: HPI History of Present Illness Date/Time: 09/09/20 08:01 Chief Complaint: Generalized weakness Narrative: THIS IS A 70-YEAR-OLD FEMALE WITH PAST MEDICAL HISTORY SIGNIFICANT FOR STROKE LEFT-SIDED HEMIPARESIS BREAST CANCER REMISSION TYPE 2 DIABETES MELLITUS. PATIENT LIVES AT HOME DAUGHTER BROUGHT HER IN AFTER PATIENT HAS BEEN BED-BOUND MOST OF THE TIME WORSENING GENERALIZED WEAKNESS SHE CONTACTED HER PRIMARY CARE PHYSICIAN WHO ADVISED HER TO COME TO THE EMERGENCY ROOM. PATIENT CAN'T REALLY PROVIDE MUCH HISTORY BUTT SHE DENIES ANY FEVERS, CHILLS ,RIGORS, NO SHORTNESS OF BREATH NO COUGH NO SPUTUM PRODUCTION NO NAUSEA NO VOMITING NO DIARRHEA NO PAIN OR BURNING WITH URINATION. PRELIMINARY WORKUP WAS SIGNIFICANT FOR ABNORMAL LFTS, CT OF ABDOMEN AND PELVIS SHOWS CHRONIC PYELONEPHRITIS CT OF THE HEAD WAS SIGNIFICANT FOR MULTIPLE CHRONIC STROKES. Review of Systems Review of Systems: Narrative: PATIENT WAS BROUGHT BUT A HER DAUGHTER TO THE EMERGENCY ROOM AFTER PATIENT HAS PROGRESSIVELY BECOME MORE AND MORE WEAK AND BARELY GETTING OUT OF BED Constitutional: Constitutional: Denies chills, Denies fever(s) and Reports weakness Eyes: Eyes: Denies change in vision ENT: Denies nasal congestion, Denies nasal discharge and Denies nasal obstruction Cardiovascular: Cardiovascular: Denies irregular heart rhythm, Denies lightheadedness, Denies radiating jaw, neck or arm pain and Denies palpitations Respiratory: Respiratory: Denies chest congestion, Denies dyspnea and Denies wheezing Gastrointestinal: Gastrointestinal: Denies heartburn, Denies nausea and Denies vomiting Genitourinary: Genitourinary: Denies dysuria Musculoskeletal: Musculoskeletal: Denies muscle weakness Integumentary/Breasts: Skin/Breast: Denies rash Neurologic: Denies syncope, Denies numbness and Denies Sensory deficit (Neuro) Psychiatric: Psychiatric: Reports no additional psychiatric complaints Endocrine: Endocrine: Reports no additional endocrine complaints Hematologic/Lymphatic: Hematologic/Lymphatic: Reports no additional hematologic/lymphatic complaints Allergic/Immunologic: Allergic/Immunologic: Reports no additional allergic/immunologic complaints PMF Past Medical History Medical History 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 Asthma Diabetes mellitus with neuropathy Hyperlipidemia Hypertension Stroke She had a CVA in February 2019 with residual right sided weakness and dysarthric speech Surgical History Surgical History History of mastectomy Left mastectomy Family History Family History Mother Breast cancer Diabetes mellitus Sibling Diabetes mellitus Hypertension Father Prostate carcinoma Social History Social History Social History: Mrs. Meza lives at home with her boyfriend. 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 She reports a hx of crack cocaine use prior to her stroke but denies current drug and alcohol use. She endorses smoking 1 cigarette per day but states she has not smoked in 1 week. She wishes to be a full code and has designated her daughter, Shanel Jacobs, as her surrogate decision maker. Smoking packs per day: 2 Smoking cigarettes per day: 40.0 Years smoked: 10 Smoking pack-years: 20.00 Smoking status: Former smoker Tobacco type: cigarettes Second hand tobacco smoke exposure: Yes Additional smoking assessment comments: She reports she has not smoked in 1 week but does smoke 1 cigarette/day. Alcohol intake: never Alcohol use details: She used to drink heavily but is no longer drinking alcohol. Substance use: former Substance use type: crack/cocaine Gender identity (if verbalized by the patient): Female Spir
--- NOTE | 2020-09-09 11:33 | PCPTNOTE ---
Attempted PT eval. Pt eating lunch. Will try again at later time.
--- NOTE | 2020-09-09 12:08 | PCNSR ---
On 09/09/20, the student,Yessica Meza, provided care and completed [facility] documentation on this patient. I have reviewed the student's documentation and agree with the findings.
--- NOTE | 2020-09-09 18:57 | ADMGEN ---
This patient, Mariely Meza, was admitted to [facility] Surg Room 326-01 at 0745. Patient/family oriented to hospital policies and general routines including ID bracelet, bed and alarms, visiting hours, pain management, procedures, bathroom and other care routines, personal items, smoking policy, room service/diet, and visiting hours. Information on how to activate the Rapid Response Team has been discussed. Patient/Family are encouraged to report perceived risks to care and to ask questions if they do not understand what they are told or what they should do.
[2020-09-09] MEDS: carvediloL 25 MG TABLET PO (19:40)
[2020-09-09] MEDS: ACETAMINOPHEN 325 MG TABLET 650 MG PO (19:40)
[2020-09-09] MEDS: ATORVASTATIN 40 MG TABLET PO (20:34)
[2020-09-10 06:00] VITALS: BP 117/71; PULSE 71; RESP 18; TEMP 36.4; O2SAT 100
[2020-09-10 08:25] VITALS: PULSE 77
[2020-09-10] MEDS: carvediloL 25 MG TABLET PO ×2 (08:25→17:45)
[2020-09-10] MEDS: ASPIRIN 325 MG TABLET PO (11:35)
[2020-09-10] MEDS: ENOXAPARIN 40 MG/0.4 ML SYRINGE SUB-Q (11:36)
[2020-09-10 12:27] LABS: Glucose Point of Care 114 mg/dl (65-105)
[2020-09-10 14:00] VITALS: BP 99/57; PULSE 70; RESP 14; TEMP 36.9; O2SAT 100
--- NOTE | 2020-09-10 15:29 | PM.IMPN ---
Progress Note: A&P Assessment and Plan (1) Generalized weakness: Code(s): R53.1 - Weakness Status: Acute Assessment and Plan: Suspect multifactorial - patient's overall deconditioning and decline reported by patient and family over the last 4 to 5 months secondary to multiple strokes. Possible UTI may have a factor in acute worsening this week. Appreciate PT/OT. Dispo is SNF likely tomorrow. (2) Urinary tract infection: Code(s): N39.0 - Urinary tract infection, site not specified Status: Acute Assessment and Plan: UA abnormal in the setting of increased urinary frequency in the last several day. Continue IV rocephin while awaiting urine culture which is pending. (3) Left hemiparesis: Code(s): G81.94 - Hemiplegia, unspecified affecting left nondominant side Status: Acute Assessment and Plan: Chronic secondary to old CVAs. PT/OT - dispo is SNF. (4) Stroke: Code(s): I63.9 - Cerebral infarction, unspecified Status: Chronic Assessment and Plan: History of multiple CVA confirmed by CT brain on arrival. Continue her home ASA and statin therapy. Subjective Date/time seen: 09/10/20 1200 Interval history: Ms. Meza is a pleasant 70yo F admitted for generalized weakness. She reports feeling well today. She walked in the hallway with therapy. She describes getting weaker and weaker over the last several weeks to months but otherwise offers no complaints. She denies being in any pain, chest pain, shortness of breath, nausea or vomiting. She denies dysuria but describes increased urinary frequency over the last several days. She is agreeable to going to nursing facility. Review of Systems Review of Systems: All systems reviewed & are unremarkable except as noted in HPI and below Exam Narrative: Exam Narrative: General: Female resting comfortably sitting up in bedside chair in no acute distress. HEENT: Normocephalic, EOMI, oral mucosa moist. Cardiovascular: Rate and rhythm are regular. Respiratory: Lungs clear to auscultation bilaterally. Respirations even and non-labored. Abdomen: Soft, non-tender, non-distended, bowel sounds present. Extremities: Peripheral pulses intact. No edema or pain to palpation. Neuro: Awake and alert; answering questions appropriately. Automotive Parts Clerk strength feels equal bilaterally. Speech is a bit dysarthric but easily understandable. Objective Data Vital Signs Vital Signs: Last Vital Signs Temp 98.5 F 09/10/20 14:00 Pulse 70 09/10/20 14:00 Resp 14 09/10/20 14:00 BP 99/57 L 09/10/20 14:00 Pulse Ox 100 09/10/20 14:00 Intake/Output Intake/Output: Intake & Output 09/07/20 09/08/20 09/09/20 09/10/20 23:59 23:59 23:59 23:59 Intake Total 2410 390 Balance 2410 390 Meds/Results Medications: Active Medications Generic Name Dose Route Start Last Admin Trade Name Freq PRN Reason Stop Dose Admin Acetaminophen 650 mg 09/09/20 02:53 09/09/20 19:40 Acetaminophen 325 Mg Tablet PO 650 mg Q4H PRN Administration Mild Pain (1-3) or Fever Albuterol 2 puff 09/09/20 15:05 Albuterol Sulfate (*Sp) Aerosol 1 Puff INHALATION QIDRT PRN Shortness Of Breath Or Wheezing Aspirin 325 mg 09/10/20 09:00 09/10/20 11:35 Aspirin 325 Mg Tablet PO 325 mg DAILY LALY Administration Atorvastatin Calcium 40 mg 09/09/20 21:00 09/09/20 20:34 Atorvastatin 40 Mg Tablet PO 40 mg HS LALY Administration Carvedilol 25 mg 09/09/20 17:00 09/10/20 08:25 Carvedilol 25 Mg Tablet PO 25 mg BID LALY Administration Dextrose 12.5 gm 09/10/20 08:33 Dextrose 50% 25 Gm/50 Ml Syringe IV PUSH PRN PRN Hypoglycemia Protocol Enoxaparin Sodium 40 mg 09/10/20 09:00 09/10/20 11:36 Enoxaparin 40 Mg
[2020-09-10 17:45] VITALS: PULSE 69
[2020-09-10 21:29] LABS: Glucose Point of Care 150 mg/dl (65-105)
[2020-09-10 21:35] LABS: Glucose Point of Care 84 mg/dl (65-105)
[2020-09-10 21:49] VITALS: BP 114/68; PULSE 69; RESP 16; TEMP 36.3; O2SAT 100
[2020-09-11 05:55] VITALS: BP 107/61; PULSE 72; RESP 18; TEMP 36.2; O2SAT 100
[2020-09-11 07:36] LABS: Glucose Point of Care 137 mg/dl (65-105)
[2020-09-11] MEDS: ENOXAPARIN 40 MG/0.4 ML SYRINGE SUB-Q (09:04)
[2020-09-11] MEDS: ASPIRIN 325 MG TABLET PO (09:04)
[2020-09-11 09:05] VITALS: PULSE 80
[2020-09-11] MEDS: carvediloL 25 MG TABLET PO (09:05)
[2020-09-11 10:44] LABS: Basophils Absolute Auto 0.1 K/mm3 (0.0-0.1); Basophils Percent Auto 1.5 % (0.2-1.2); Eosinophils Absolute Auto 0.3 K/mm3 (0-0.3); Eosinophils Percent Auto 5.7 % (0-4.4); Hematocrit 39.7 % (37.0-47.0); Hemoglobin 11.3 g/dL (12.0-15.0); Immature Granulocyte Absolute 0.01 K/mm3 (0.00-0.031); Immature Granulocyte Percent A 0.2 % (0-0.5); Lymphocytes Absolute Auto 1.71 K/mm3 (0.9-3.2); Lymphocytes Percent Auto 31.5 % (18.3-44.2); Mean Corpuscular HGB Conc 28.5 g/dl (32-36); Mean Corpuscular Hemoglobin 27.6 pg (26-34); Mean Corpuscular Volume 97.1 fl (80-100); Mean Platelet Volume 10.4 fl (7.4-10.4); Monocytes Absolute Auto 0.6 K/mm3 (0.1-0.6); Monocytes Percent Auto 11.3 % (2.6-8.5); Neutrophils Absolute Auto 2.7 K/mm3 (1.3-6.7); Neutrophils Percent Auto 49.8 % (45.5-73.1); Platelet Count Result 367 k/mm3 (150-375); Red Blood Count 4.09 M/mm3 (4.2-5.4); White Blood Count 5.4 K/mm3 (4.5-10.0)
[2020-09-11 12:03] LABS: Glucose Point of Care 124 mg/dl (65-105)
[2020-09-11 12:15] LABS: Hepatitis B Surface Antigen Negative (Negative)
[2020-09-11 12:28] LABS: HAV RESULT Negative (Negative); Hepatitis B Core IgM Result Negative (Negative)
[2020-09-11] MEDS: ACETAMINOPHEN 325 MG TABLET 650 MG PO (12:32)
[2020-09-11 12:33] LABS: Hepatitis C Virus Antibody Negative (Negative)
--- NOTE | 2020-09-11 12:46 | PM.DS ---
DS: Admitting Diagnosis Admitting Diagnosis Admitting Diagnosis: Weakness DS: Discharge Diagnosis Discharge Diagnosis (1) Generalized weakness: Code(s): R53.1 - Weakness Status: Acute Assessment and Plan: Date of Admission 09/09/20 Date of Discharge 09/11/20 Ms. Meza is a 70yo F with history of multiple strokes who presented to the ED for evaluation of progressive worsening of generalized weakness. She has history of chronic left hemiparesis from old strokes and her daughter noted her overall health has been declining over the last 4 to 5 months and she has been becoming weaker. Patient tells me she has mostly been in bed over the last 2 months and has barely gotten up to walk due to weakness. She was admitted to the hospitalist service for rehab placement. Urinalysis was abnormal and she was empirically started on IV rocephin. UA had moderate amount of squamous cells suggesting could be contaminated specimen. Urine culture was negative and antibiotics were discontinued. CT brain showed small chronic lacunar infarct of left cerebral hemisphere, chronic small left occipital paramedian chronic infarct and multiple bilateral cerebral chronic lacunar infarcts, left greater than right; no significant change since 06/07/2020. She worked with PT/OT and is felt to be a good candidate to continue therapy at SNF. She is hemodynamically stable for discharge to SNF today 09/11/20 to follow up with PCP. Suspect multifactorial - patient's overall deconditioning and decline reported by patient and family over the last 4 to 5 months secondary to multiple strokes. Possible UTI may have a factor in acute worsening this week. Continue PT/OT. Dispo is SNF today. (2) Urinary tract infection: Code(s): N39.0 - Urinary tract infection, site not specified Status: Resolved Assessment and Plan: UA abnormal, treated with 2 doses of IV ceftriaxone. urine culture negative. Abx discontinued. (3) Left hemiparesis: Code(s): G81.94 - Hemiplegia, unspecified affecting left nondominant side Status: Acute Assessment and Plan: Chronic secondary to old CVAs. PT/OT - dispo is SNF. (4) Stroke: Code(s): I63.9 - Cerebral infarction, unspecified Status: Chronic Assessment and Plan: History of multiple CVA confirmed by CT brain on arrival. Continue her home ASA and statin therapy. DS: Summary Hospital Course Hospital Course: See above. Time Spent with Patient Time attestation: Total time spent providing and/or coordinating discharge services: 35 minutes Exam Narrative: Exam Narrative: General: Female resting comfortably sitting up in bedside chair in no acute distress. HEENT: Normocephalic, EOMI, oral mucosa moist. Cardiovascular: Rate and rhythm are regular. Respiratory: Lungs clear to auscultation bilaterally. Respirations even and non-labored. Abdomen: Soft, non-tender, non-distended, bowel sounds present. Extremities: Peripheral pulses intact. No edema or pain to palpation. Neuro: Awake and alert; answering questions appropriately. Manager Community Relations strength feels equal bilaterally. Speech is a bit dysarthric but easily understandable. DS: Data Data Completed and Pending Labs on day of discharge: Last Vital Signs Temp 97.1 F L 09/11/20 05:55 Pulse 80 09/11/20 09:05 Resp 18 09/11/20 05:55 BP 107/61 09/11/20 05:55 Pulse Ox 100 09/11/20 05:55 ITS Impressions Chest X-Ray 09/08/20 21:19 IMPRESSION: 1. No acute cardiopulmonary disease. Head CT 09/09/20 07:18 IMPRESSION: Small chronic lacunar infarct of left cerebral hemisphere, chronic small left occipital paramedian chronic infarct and multiple bilateral cerebral chronic lacunar infarcts, left greater than right
[2020-09-11 13:45] LABS: Alanine Aminotransferase 143 U/L (4-35); Albumin Level 3.1 g/dL (3.5-5.1); Alkaline Phosphatase 60 U/L (38-126); Anion Gap 6 mmol/L (8-16); Aspartate Amino Transferase 233 U/L (14-36); Bilirubin,Total 0.4 mg/dL (0.2-1.3); Blood Urea Nitrogen 15 mg/dL (7-17); Carbon Dioxide 25 mmol/L (22-30); Chloride 107 mmol/L (98-107); Estimated CRCL calculation 57 ml/min; Estimated Glomerular Filt Rate > 60; Glucose 133 mg/dL (65-110); Magnesium 1.7 mg/dL (1.6-2.3); Potassium 4.5 mmol/L (3.4-5.0); Sodium 138 mmol/L (137-145)
[2020-09-11 14:00] VITALS: BP 120/74; PULSE 84; RESP 18; TEMP 36.2; O2SAT 97
== END 2020-09-11 14:15 ==
LOC: ANHED 09-09 02:58 → ANH3MEDSUR 09-09 05:50
PROVIDERS: Family Medicine; Physician Assistant; Admitting Provider Internal Medicine; Emergency Provider Emergency Medicine; Visit Provider Internal Medicine
DX: R53.1 Weakness (principal); R82.90 Unspecified abnormal findings in urine; I10 Essential (primary) hypertension; R29.6 Repeated falls; I69.354 Hemiplegia and hemiparesis following cerebral infarction affecting left non-dominant side; F10.21 Alcohol dependence, in remission; E11.40 Type 2 diabetes mellitus with diabetic neuropathy, unspecified; E78.5 Hyperlipidemia, unspecified; J45.909 Unspecified asthma, uncomplicated; Z85.3 Personal history of malignant neoplasm of breast; F17.210 Nicotine dependence, cigarettes, uncomplicated; Z79.51 Long term (current) use of inhaled steroids; Z79.84 Long term (current) use of oral hypoglycemic drugs
CPT/HCPCS: 36415; 51701; 70450; 71046; 74177; 80053; 80074; 81001; 82948; 83735; 85025; 87086; 93005; 96361; 96365; 96372; 96376; 97110; 97116; 97161; 97166; 97530; 97535; 99285; A9270; G0378; J0696; J1650; J7030; Q9967

== ENCOUNTER 2020-10-19 10:45 | Emergency (ER) | payer MEDICARE, MEDICAID, SELFPAY ==
--- NOTE | ~2020-10-19 | US_ITS ---
EXAMINATION: US venous doppler LE RT EXAM DATE: 10/19/2020 14:23 INDICATION: Right leg edema. TECHNIQUE: Multiple grayscale, color flow and Doppler images of the right lower extremity deep venous system were obtained and reviewed. There is no prior study for comparison. FINDINGS: The right common femoral, femoral and profunda veins demonstrate normal color flow, respira tory variation, augmentation and compressibility. Compressibility, color flow confirmed within the r ight popliteal, posterior tibial, peroneal, and greater saphenous veins. IMPRESSION: 1. No right lower extremity deep venous thrombosis. Reviewed, dictated and finalized at location A.
[2020-10-19 11:04] VITALS: BP 98/57; PULSE 68; RESP 16; TEMP 36.5; O2SAT 100
[2020-10-19 13:47] VITALS: BP 107/60; PULSE 65; RESP 20; TEMP 36.6; O2SAT 100
[2020-10-19 13:52] VITALS: PULSE 64; RESP 16; O2SAT 100
--- NOTE | 2020-10-19 14:03 | ED.EXTPRO ---
HPI - Extremity Problem General Chief complaint: Extremity Problem,Nontraumatic Stated complaint: leg swelling Time Seen by Provider: 10/19/20 13:47 Source: patient and family History of Present Illness HPI Narrative: Patient presents with right lower extremity edema. Reports the patient was just released from a rehab facility and noted edema and she continues to be weak there were concerned about her edema in her lower extremities and wanted her evaluated for kidney failure. Family and patient reports edema is bilaterally but the right is worse than the left. Patient is reporting some pain on her right calf that is constant, achy. Patient denies any chest pain, lightheadedness, fevers, cough, congestion, shortness of breath Related Data Allergies Allergy/AdvReac Type Severity Reaction Status Date / Time No Known Allergies Allergy Verified 10/19/20 13:55 Review of Systems Review of Systems: CONSTITUTIONAL: Denies fever, chills, or sweats. EYES: Denies visual changes, redness, or discharge. ENT: Denies rhinorrhea, congestion, sore throat, or otalgia. CARDIOVASCULAR: Denies chest pain, palpitations, or edema. RESPIRATORY: Denies cough or dyspnea. GASTROINTESTINAL: Denies abdominal pain, nausea, vomiting, or diarrhea. GENITOURINARY: Denies dysuria or hematuria. SKIN: Denies rash or itching. MUSCULOSKELETAL: Denies back pain, joint pain, or myalgia. NEUROLOGIC: Denies headache, numbness, dizziness, or weakness. PSYCHIATRIC: Denies anxiety or depression. All systems reviewed & are unremarkable except as noted in HPI and below Exam Narrative: GENERAL: Well-appearing, well-nourished, and in no acute distress. HEAD: Normocephalic, atraumatic. EYES: PERRLA and EOMI. ENT: Nares clear, no rhinorrhea or epistaxis. Mucous membranes moist. NECK: Supple. No masses. No JVD CHEST: Clear to auscultation. No respiratory distress. No wheezes rales or rhonchi HEART: Regular rate and rhythm. No murmur heard. Normal peripheral pulses. ABDOMEN: Soft, nontender, nondistended, normal active bowel sounds. EXTREMITIES: Normal range of motion. 2+ pitting edema on the right lower extremity scant pitting edema on the left lower extremity SKIN: Warm, dry, no rash. NEURO: No focal deficits. Alert and oriented x3. PSYCH: Normal mood and affect. Course Reevaluation(s) Reevaluation #1: Patient resting comfortably results and plan reviewed with patient. Patient comfortable with the outpatient plan. Date: 10/19/20 Time: 15:55 Vital Signs Vital signs: Vital Signs Temperature 36.5 C 10/19/20 11:04 Pulse Rate 68 10/19/20 11:04 Respiratory Rate 16 10/19/20 11:04 Blood Pressure 98/57 L 10/19/20 11:04 Pulse Oximetry 100 10/19/20 11:04 Temperature 36.6 C 10/19/20 13:47 Pulse Rate 71 10/19/20 17:53 Respiratory Rate 18 10/19/20 17:53 Blood Pressure 123/73 10/19/20 17:53 Pulse Oximetry 100 10/19/20 17:53 MDM - Extremity (Nontraumatic) MDM Narrative Medical decision making narrative: H&P as above, vss, pt looks clinically well, exam is unilateral swelling, labs with mild elevation LFTs otherwise clinically unremarkable, img unremarkable, additional labs/img considered, symptomatic relief available as needed, on reevaluation pt continues to looks clinically well. Edema likely due to poor vasculature, dns DVT, sepsis, chronic kidney disease, CHF. With negative work-up patient is comfortable going home plan to tx/monitor as op w/ pcm f/u findings/plan discussed with pt, pt agree/comfortable with plan, return precautions given. Patient directed follow-up with PCM for repeat blood test Lab Data Result diagrams: 10/19/20 15:02 10/19/20 15:02 Labs: Lab Results 10/19/20 10/19/20 10/19/20 Range/Units 15:02 15:02 15:17 WBC 7.6 (4.5-10.0) K/mm3 RBC 4.09 L (4.2-5.4) M/mm3 Hgb 11.5 L (12.0-15.0) g/dL Hct 36.4 L (37.0-47.0) % MCV 89.0 (80-100) fl MCH 28.1 (26-34) pg MCH
[2020-10-19 15:04] VITALS: BP 115/75; PULSE 66; RESP 17; O2SAT 100
[2020-10-19 15:12] LABS: Basophils Absolute Auto 0.1 K/mm3 (0.0-0.1); Basophils Percent Auto 0.8 % (0.2-1.2); Eosinophils Absolute Auto 0.3 K/mm3 (0-0.3); Eosinophils Percent Auto 3.8 % (0-4.4); Hematocrit 36.4 % (37.0-47.0); Hemoglobin 11.5 g/dL (12.0-15.0); Immature Granulocyte Absolute 0.02 K/mm3 (0.00-0.031); Immature Granulocyte Percent A 0.3 % (0-0.5); Lymphocytes Absolute Auto 1.99 K/mm3 (0.9-3.2); Mean Corpuscular HGB Conc 31.6 g/dl (32-36); Mean Corpuscular Hemoglobin 28.1 pg (26-34); Mean Platelet Volume 10.1 fl (7.4-10.4); Monocytes Absolute Auto 0.5 K/mm3 (0.1-0.6); Monocytes Percent Auto 6.9 % (2.6-8.5); Neutrophils Absolute Auto 4.8 K/mm3 (1.3-6.7); Neutrophils Percent Auto 62.2 % (45.5-73.1); Platelet Count Result 418 k/mm3 (150-375); Red Blood Count 4.09 M/mm3 (4.2-5.4); Red Cell Distribution Width 15.9 % (11.5-14.5); White Blood Count 7.6 K/mm3 (4.5-10.0)
[2020-10-19] MEDS: SODIUM CHLORIDE 0.9% IV 1,000 ML 999 ML IV CONT (15:20)
[2020-10-19 15:25] LABS: Alanine Aminotransferase 187 U/L (4-35); Albumin Level 3.9 g/dL (3.5-5.1); Alkaline Phosphatase 77 U/L (38-126); Anion Gap 6 mmol/L (8-16); Aspartate Amino Transferase 252 U/L (14-36); Bilirubin,Total 0.2 mg/dL (0.2-1.3); Blood Urea Nitrogen 17 mg/dL (7-17); Calcium 9.6 mg/dL (8.4-10.2); Carbon Dioxide 31 mmol/L (22-30); Chloride 98 mmol/L (98-107); Estimated CRCL calculation 51 ml/min; Estimated Glomerular Filt Rate > 60; Glucose 87 mg/dL (65-110); Potassium 4.3 mmol/L (3.4-5.0); Sodium 135 mmol/L (137-145)
[2020-10-19 15:51] VITALS: BP 122/74; PULSE 70; RESP 17; O2SAT 100
[2020-10-19 16:18] LABS: Add Urine Microscopic? YES; Appearance Urine Clear (Clear); Bilirubin Urine Negative (Negative); Blood Urine 3+ (Negative); Color Urine Yellow (Yellow); Glucose Urine UA Negative (Negative); Ketones Urine Negative (Negative); Leukocyte Esterase Ur Negative LEU/UL (Negative); Nitrate Urine Negative (Negative); Protein Urine 1+ mg/dL (Negative); Urobilinogen Urine 0.2 mg/dL (<2.0)
[2020-10-19 17:53] VITALS: BP 123/73; PULSE 71; RESP 18; O2SAT 100
== END 2020-10-19 17:56 | disposition home or self-care (01) ==
PROVIDERS: General Practice; Emergency Provider Emergency Medicine; PCP Internal Medicine
DX: R60.0 Localized edema (principal); R74.01 Elevation of levels of liver transaminase levels
CPT/HCPCS: 36415; 51701; 80053; 81001; 85025; 93971; 96360; 99284; J7030